=== PATIENT | male | born 1940 | race Caucasian/White ===

== ENCOUNTER 2021-08-30 09:00 | Outpatient (REF) | payer MEDICARE, SELFPAY ==
[2021-08-30 12:18] LABS: Color, Urine Yellow (Yellow); Glucose, Dipstick Normal (Normal); Ketone-Dipstick Negative (Negative); Leukocyte Esterase-Dipstick Negative /ul (Negative); Nitrite-Dipstick Negative (Negative); Occult Blood-Urine Negative /ul (Negative); Protein-Dipstick Negative (Negative); Urine Bilirubin Dipstick Negative (Negative); Urine Clarity Sl. Cloudy (Clear); Urine Urobilinogen Normal (Normal)
== END 2021-08-30 23:59 | disposition home or self-care (01) ==
LOC: OLS.BROOKB 09:00
PROVIDERS: Visit Provider Family Medicine
DX: R41.0 Disorientation, unspecified (principal)
CPT/HCPCS: 81002; 87086

== ENCOUNTER → 2021-10-21 | Outpatient (REF) | payer MEDICARE, SELFPAY ==
[2021-10-21 07:19] LABS: Hematocrit 31.7 % (40-54); Hemoglobin 9.7 g/dL (13.0-16.5); Mean Corp Hgb Conc 30.6 g/dL (32-36); Mean Corpuscular Hgb 25.7 pg (27.0-32.0); Mean Corpuscular Volume 83.9 fL (80-94); Mean Platelet Vol. 10.2 fl (6.2-12.0); Platelet Count 363 K/mm3 (150-450); RBC Distribution Width SD 52.2 fl (35.1-43.9); Red Blood Count 3.78 M/mm3 (4.6-6.2); White Blood Count 5.7 K/mm3 (4.4-11.0)
[2021-10-21 07:43] LABS: ALB/GLOB Ratio 0.5 RATIO (0.9-2.4); AST(SGOT) 8 U/L (15-37); Alanine Aminotransfer ALT/SGPT < 6 U/L (16-61); Albumin, Serum 2.1 g/dL (3.2-5.0); Alkaline Phosphatase 57 U/L (45-117); Anion Gap 5 (5-15); BUN 9 mg/dL (7-18); BUN/Creat Ratio 14.4 RATIO (10-20); Calcium,Total 7.7 mg/dL (8.5-10.1); Chloride 107 mmol/L (98-107); Creatinine, Serum 0.63 mg/dL (0.70-1.30); EST Glomerular Filtration Rate 131 mL/min (>60); Est Glom Filt Rate - Afr Amer 158 mL/min (>60); Glucose 80 mg/dL (74-106); Potassium 3.6 mmol/L (3.5-5.1); Protein, Total 6.1 g/dL (6.4-8.2); Sodium Level 140 mmol/L (136-145); Thyroid Stim Hormone (TSH) 1.49 uIU/mL (0.358-3.74)
== END | disposition home or self-care (01) ==
LOC: OLS.BROOKB 05:00
PROVIDERS: Visit Provider Family Medicine
DX: R33.9 Retention of urine, unspecified (principal); R60.0 Localized edema
CPT/HCPCS: 36415; 80053; 84443; 85027

== ENCOUNTER → 2021-12-10 05:00 | Outpatient (REF) | payer MEDICARE, SELFPAY ==
[2021-12-10 09:05] LABS: Absolute Lymphocyte Count 1.12 X10^3/uL (0.83-4.51); Absolute Neutrophil Count 3.9 X10^3/uL (2.0-7.7); Basophil# 0.04 X10^3/uL; Basophil% 0.7 % (0-1); Eosinophil# 0.37 X10^3/uL; Eosinophils% 6.2 % (0-5); Hematocrit 33.1 % (40-54); Hemoglobin 10.1 g/dL (13.0-16.5); Lymphocyte # 1.12 X10^3/ul (0.83-4.51); Lymphocyte % 18.8 % (19-41); Mean Corp Hgb Conc 30.5 g/dL (32-36); Mean Corpuscular Hgb 25.6 pg (27.0-32.0); Mean Platelet Vol. 10.2 fl (6.2-12.0); Monocyte# 0.53 X10^3/uL; Monocyte% 8.9 % (0-10); NRBC Flagged by Analyzer 0 % (0-5); Neutrophil # 3.87 X10^3/uL (2.7-7.7); Neutrophil % 65.1 % (47-70); Platelet Count 366 K/mm3 (150-450); Red Blood Count 3.94 M/mm3 (4.6-6.2)
[2021-12-10 09:30] LABS: Anion Gap 5 (5-15); BUN 12 mg/dL (7-18); BUN/Creat Ratio 15.9 RATIO (10-20); Calcium,Total 8.1 mg/dL (8.5-10.1); Chloride 107 mmol/L (98-107); Creatinine, Serum 0.75 mg/dL (0.70-1.30); EST Glomerular Filtration Rate 106 mL/min (>60); Est Glom Filt Rate - Afr Amer 128 mL/min (>60); Ferritin 143 ng/mL (26-388); Glucose 84 mg/dL (74-106); Iron 34 ug/dL (65-175); Potassium 3.1 mmol/L (3.5-5.1); Sodium Level 142 mmol/L (136-145)
== END ==
LOC: OLS.BROOKB 05:00
PROVIDERS: Visit Provider Family Medicine
DX: M62.81 Muscle weakness (generalized) (principal)
CPT/HCPCS: 36415; 80048; 82728; 83540; 85025

== ENCOUNTER 2022-05-08 10:03 | Emergency (ER) | payer OTHER, SELFPAY ==
[2022-05-08 10:06] VITALS: TEMP 37; BMI 25.5
[2022-05-08 10:15] VITALS: BP 143/79; PULSE 75; RESP 16; TEMP 36.4; O2SAT 95
--- NOTE | 2022-05-08 10:42 | EX.ED.GUMALE ---
HPI History of Present Illness Chief Complaint: Complaint Informant: patient and spouse/S.O. Pain Onset: Today and Yesterday Context: Gradual Onset Current Severity: Mild Maximum Severity: Mild Appearance Lesion(s): No Genital Edema: No Narrative Narrative: 81-year-old male history of BPH with 2 prior TURP procedures. Also history of dementia currently living in [facility]. Accompanied by his . Reportedly he has had cloudy urine in the last several days may or may not of had urinary retention. No fever or chills. No nausea, vomiting or diarrhea. History per his due to his overall mental status. Prior similar symptoms: Yes Recent Illness/Hospitalization: No PFSH PFSH Home Medications ciprofloxacin HCl 500 mg tablet (Cipro) 500 mg PO BID 10 days #20 tabs 05/08/22 [Rx Last Taken Unknown] Allergy/AdvReac Type Severity Reaction Status Date / Time No Known Allergies Allergy Verified 05/08/22 10:09 Social History Smoking Status: Former smoker ROS ROS ED Review of Systems ROS Unobtainable: due to mental condition Constitutional Constitutional ED: Denies chills or fever(s) Eyes Eyes: Denies blurry vision ENT ENT ED: Denies ear pain Cardiovascular Cardiovascular: Denies chest pain Respiratory/Chest Respiratory/Chest: Denies cough or dyspnea Gastrointestinal Gastrointestinal: Denies abdominal pain Genitourinary Genitourinary ED: Reports dysuria; Denies hematuria Musculoskeletal Musculoskeletal: Denies arthralgias or back pain Integumentary Denies abscess or rash Neurologic Neurologic: Denies headache(s) Psychiatric Psychiatric: Denies anxiety Endocrine Endocrinology: Denies polydipsia Hematologic/Lymphatic Hematologic/Lymphatic: Denies easy bleeding Allergic/Immunologic Allergic/Immunologic ED: Denies mouth swelling or tongue swelling EXAM Physical Exam Narrative Exam Narrative: Well-appearing elderly male. Vital signs stable afebrile. Pulse ox 95% on room air no hypoxia. He does not look septic or toxic. He is in no distress. at bedside. H EENT exam unremarkable. Moist mucous membranes. Neck nontender no lymphadenopathy. Lungs clear to auscultation. Heart regular rate and rhythm no murmur rate about 75. Chest wall nontender. Abdomen soft nontender. External exam unremarkable. Moving all 4 extremities. Calves are nontender without edema. Neurologically he is awake and alert. He answers questions and follows commands. He does have dementia. He has no focal motor deficits. Const Vital Signs: 05/08/22 10:06 05/08/22 10:15 05/08/22 10:15 Temperature 98.6 F 97.5 F L 97.5 F L Temperature Source Temporal Temporal Temporal Pulse Rate 75 75 Respiratory Rate 16 16 Blood Pressure 143/79 H 143/79 H Blood Pressure Mean 100 100 Pulse Ox 95 95 Oxygen Delivery Method Room Air Room Air Positive well nourished and well developed; Negative for obese, cachectic, contractures or unkempt General Appearance ED: well developed and NAD; Negative for unkempt, cachectic, contractures or pallor Nutritional Appearance: Negative for cachectic or obese HEENT Reports moist mucous membranes; Denies dry mucous membranes normocephalic and atraumatic; Negative for trauma or tenderness Mouth ED: No dry mucous membranes Mouth: No dry mucous membranes Eyes PERRL and EOMs intact bilaterally General Eye ED: Negative for pale conjunctiva or scleral icterus Neck no lymphadenopathy, supple and no JVD General: Negative for tenderness Resp normal respiratory effort and clear to auscultation bilaterally Effort and Inspection: Negative for retractions Auscultation: Negative for rales, rhonchi or wheezes Cardio regular rate, regular rhythm, S1 normal heart sound, S2 normal heart sound and no murmurs Rate: Negative for bradycardia or tachycardic Rhythm: Negative for abnormal rhythm GI non-tender, non-distended and no masses Inspection: Negative for abdominal distention Auscultation: normoactive bowel sounds Palpation: soft; Negative for tender or guarding no CVA tenderness Bladder / Kidney Exam: No CVA tenderness Groin / Perineum Exam: Negative for edema or lesions Back/Spine no CVA tenderness General Back: Negative for CVA tenderness Cervical Spine: Negative for cervical spine tenderness Thoracic Spine / Upper Back: Negative for thoracic spinal tenderness Extremity normal to inspection Neuro No oriented x3, moves all extremities and no focal motor deficits Neuro Narrative: Dementia. Sensorium / Orientation: alert, oriented to person and confused; Negative for oriented to place, oriented to time, orientation impaired, lethargic or stuporous Motor Exam: strength 5/5 throughout Psych mental status grossly normal Appearance: Negative for unkempt Attitude: No agitated Mood & Affect: Negative for depressed Thought Process: normal thought process Thought Content: normal thought content Skin General Skin Exam: Negative for jaundice or pallor Lesions: no lesions Rashes: no rashes MDM MDM MDM Narrative Medical decision making narrative: 81-year-old male suffers from dementia from extended-care facility with possibly urinary tract infection. Screening labs along with a UA will be obtained with a bladder scan. Exam benign. Clinically looks well. Patient doing well at 12 PM. He has a [address] It drained 1-1/2 L. Discussed test results with he and his . He will be started on Cipro 500 twice daily for 10 days. Urine culture sent. He will be sent back to [email or web address] I will speak with them prior to discharge. Lab Data Attestation: I reviewed the patient's lab results. Lab results narrative: CBC shows white count 7.5. H&H 10.9 and 35.4 is a history of anemia. Platelets 398. Electrolytes potassium 3.3 gap of 7. Normal BUN of 16 creatinine 0.95. Glucose 122. Urine positive for nitrates greater than 100 white cells 2+ bacteria culture was sent this will be treated for UTI. Nurses had a bladder scan showed greater than 600 cc they placed a Garrido catheter 16 Japanese and he had 1500 cc out of cloudy urine. No blood or clots. Labs: Laboratory Results - last 24 hr 05/08/22 05/08/22 05/08/22 10:15 11:00 11:00 WBC 7.5 RBC 4.00 L Hgb 10.9 L Hct 35.4 L MCV 88.5 MCH 27.3 MCHC 30.8 L RDW Std Deviation 48.5 H RDW Coeff of [place]ay[place] 14.8 H Plt Count 398 MPV 9.7 Immature Gran % (Auto) 0.500 Neut % (Auto) 70.8 H Lymph % (Auto) 14.7 L [place] % (Auto) 11.1 H Eos % (Auto) 2.4 Baso % (Auto) 0.5 Absolute Neuts (auto) 5.3 Absolute Lymphs (auto) 1.10 Nucleated RBC % 0 Sodium 144 Potassium 3.3 L Chloride 109 H Carbon Dioxide 28.0 Anion Gap 7 BUN 16 Creatinine 0.95 Estim Creat Clear Calc 57.02 Est GFR (MDRD) Af Amer 98 Est GFR (MDRD) Non-Af 81 BUN/Creatinine Ratio 16.9 Glucose 122 H Calcium 8.5 Urine Color Yellow Urine Clarity Cloudy Urine pH 7.0 Ur Specific [place] 1.010 Urine Protein 500 H Urine Glucose (UA) Normal Urine Ketones 5 H Urine Occult Blood 250 H Urine Nitrite Positive H Urine Bilirubin Negative Urine Urobilinogen Normal Ur Leukocyte Esterase 500 H Urine RBC 0 SEEN Urine WBC >100 SEEN Ur Squamous Epith Cells 0 SEEN Urine Bacteria 2+ Urine Mucus 0 SEEN Discharge Plan Triage Chief Complaint: Complaint Other Complaint: Confusion ED Provider: Wilbert Schultz Dx/Rx/DC Orders Clinical Impression: Urinary tract infection, Acute urinary retention, History of dementia Instructions: ED Urinary Retention, Male, ED Urinary Tract Infections in Men Prescriptions: New ciprofloxacin HCl [Cipro] 500 mg tablet 500 mg PO BID 10 Days Qty: 20 0RF [facility] Referrals: Naveen Dickey MD [Med Staff - Active Staff] - As soon as possible [facility] [Primary Care Provider] - As Needed Activity Restrictions/Additional Instructions: He had 2 problems today the first was urinary retention which he will need to follow-up with the urologist for that. I referred you to Dr. Ankush Dickey. He also had a urinary tract infection. Urine culture was sent. He will be started on antibiotics Cipro 1 pill twice a day for 10 days. I spoke to [facility] and they said they can get that prescription filled today and he can take it tonight. We are giving him a dose here before he goes. The Garrido catheter will remain in place until he is seen by the urologist. Disposition Disposition: Home, Self Care
[2022-05-08 11:13] LABS: Mucous, Urine 0 SEEN /hpf (<or=2+); Red Blood Cells-Urine 0 SEEN /hpf (0-5); Squamous Epithelial Cells - UA 0 SEEN /hpf (0-5)
[2022-05-08 11:14] LABS: Absolute Neutrophil Count 5.3 X10^3/uL (2.0-7.7); Basophil# 0.04 X10^3/uL; Basophil% 0.5 % (0-1); Eosinophil# 0.18 X10^3/uL; Eosinophils% 2.4 % (0-5); Hematocrit 35.4 % (40-54); Hemoglobin 10.9 g/dL (13.0-16.5); Lymphocyte % 14.7 % (19-41); Mean Corp Hgb Conc 30.8 g/dL (32-36); Mean Corpuscular Hgb 27.3 pg (27.0-32.0); Mean Corpuscular Volume 88.5 fL (80-94); Mean Platelet Vol. 9.7 fl (6.2-12.0); Monocyte# 0.83 X10^3/uL; Monocyte% 11.1 % (0-10); NRBC Flagged by Analyzer 0 % (0-5); Neutrophil # 5.29 X10^3/uL (2.7-7.7); Neutrophil % 70.8 % (47-70); Platelet Count 398 K/mm3 (150-450); RBC Distribution Width CV 14.8 % (11.6-14.6); RBC Distribution Width SD 48.5 fl (35.1-43.9); White Blood Count 7.5 K/mm3 (4.4-11.0)
[2022-05-08 11:19] LABS: Color, Urine Yellow (Yellow); Glucose, Dipstick Normal (Normal); Ketone-Dipstick 5 mg/dl (Negative); Leukocyte Esterase-Dipstick 500 /ul (Negative); Nitrite-Dipstick Positive (Negative); Occult Blood-Urine 250 /ul (Negative); Protein-Dipstick 500 mg/dl (Negative); Urine Bilirubin Dipstick Negative (Negative); Urine Clarity Cloudy (Clear); Urine Urobilinogen Normal (Normal)
[2022-05-08 11:27] LABS: Anion Gap 7 (5-15); BUN 16 mg/dL (7-18); BUN/Creat Ratio 16.9 RATIO (10-20); Calcium,Total 8.5 mg/dL (8.5-10.1); Chloride 109 mmol/L (98-107); Creatinine, Serum 0.95 mg/dL (0.70-1.30); EST Glomerular Filtration Rate 81 mL/min (>60); Est Glom Filt Rate - Afr Amer 98 mL/min (>60); Estimated Creatinine Clearance 57.02 ml/min; Glucose 122 mg/dL (74-106); Potassium 3.3 mmol/L (3.5-5.1); Sodium Level 144 mmol/L (136-145)
[2022-05-08 11:30] LABS: Bacteria 2+ /hpf (None Seen); White Blood Cells >100 SEEN /hpf (0-5)
[2022-05-08] MEDS: Lidocaine Jelly 2% 20 ML Syringe (URO-JET) 1 APPLIC TOPICAL (11:35)
[2022-05-08] MEDS: Ciprofloxacin 500 MG Tablet PO (12:23)
[2022-05-08 12:25] VITALS: BP 163/72; PULSE 70; RESP 16; O2SAT 97
[2022-05-08 13:03] VITALS: PULSE 72; RESP 17; O2SAT 94
== END 2022-05-08 13:06 | disposition home or self-care (01) ==
PROVIDERS: Emergency Provider Emergency Medicine; Visit Provider Emergency Medicine
DX: N39.0 Urinary tract infection, site not specified (principal); F03.90 Unspecified dementia, unspecified severity, without behavioral disturbance, psychotic disturbance, mood disturbance, and anxiety; R33.9 Retention of urine, unspecified; Z87.891 Personal history of nicotine dependence
CPT/HCPCS: 51702; 80048; 81001; 85025; 87086; 87088; 99285; J7030; A4216

== ENCOUNTER 2022-05-11 11:17 | Emergency (ER) | payer OTHER, SELFPAY ==
[2022-05-11 11:18] VITALS: BP 165/64; PULSE 64; RESP 18; TEMP 36.9; O2SAT 99; BMI 21.9
--- NOTE | 2022-05-11 11:27 | CM.ED ---
Social Work Consult: Discharge Planning Referral source: Triage Nurse. This protective services social worker went to triage to touch base with family. On the way to triage [facility] called this protective services social worker. Ximena at [facility] reports to have been speaking with patient family ([id number], Alissa and , Aleida). Ximena reports that patient has been accepted to [facility] unit and plan is for patient to discharge from the ED to [facility] inpatient unit. Ximena request for I.V to be started and urine culture to be completed on patient in ED, this protective services social worker communicating that unable to confirm treatment plan but will pass on request to medical team, Ximena voiced understanding. Ximena provided direct number phone: [phone] and fax: [phone]. Ximena reports that per family patient is able to be transferred via private vehicle. Ximena request for ED documentation to be faxed to above number. Ximena reports no need for nurse to nurse report and will go off ED records. Ximena asked to be called back when patient is discharged from ED and coming to [facility]. This protective services social worker then speaking with Alissa and Aleida. Alissa and Aleida confirm to have been speaking with [facility]. This protective services social worker communicating that per conversation with Ximena that patient is accepted at [facility]. Alissa states thank goodness. Patient diagnosed with Dementia and is a resident at [facility]. Patient with recent agitation and concern for UTI. Aleida and Alissa not pleased with care patient is obtaining at [facility] and this was reason for bringing patient to [facility] ED today. Plan is for patient to be triaged and then seen by ED doctor. Active support and listening provided. Patient son, Danie also on way to hospital. Medical team updated. Will continue to follow. Uyen SHELTON, MEIR
--- NOTE | 2022-05-11 11:41 | EX.ED.GUMALE ---
HPI History of Present Illness Chief Complaint: Male Pain/Injury Detail of Chief Complaint: Burning sensation to tip of penis Informant: patient Narrative Narrative: Patient presents to the emergency department with complaint of burning to the tip of his penis where his Garrido catheter is been inserted. Patient was seen here on the sixth of the month and diagnosed with urinary retention. Patient had a Garrido catheter inserted and was started on Cipro for suspicious urine for UTI. Patient will be going to hospice for a few days and they thought he might be dehydrated. Patient denies abdominal pain. He has history of dementia. A lot of the history comes from the patient's and son. Patient has not had fever. There is been no vomiting. [facility] Medical History (Updated 05/11/22 @ 13:[address] Terence Roman DO) Dementia Hypertension Home Medications ciprofloxacin HCl 500 mg tablet (Cipro) 500 mg PO BID 10 days #20 tabs 05/08/22 [Rx Last Taken Unknown] ciprofloxacin HCl 500 mg tablet (Cipro) 500 mg PO BID 10 days #20 tabs 05/08/22 [Rx Last Taken Unknown] Allergy/AdvReac Type Severity Reaction Status Date / Time No Known Allergies Allergy Verified 05/11/22 11:17 Social History Smoking Status: Former smoker ROS ROS ED Review of Systems ROS Unobtainable: other Constitutional Constitutional ED: Reports lethargy; Denies chills, fever(s), sweats or weight loss Eyes Eyes: Denies blurry vision, change in vision or diplopia ENT ENT ED: Denies rhinorrhea or sore throat Cardiovascular Cardiovascular: Denies chest pain, orthopnea or racing heartbeat Respiratory/Chest Respiratory/Chest: Denies cough, dyspnea, dyspnea on exertion, orthopnea or sputum Gastrointestinal Gastrointestinal: Denies abdominal pain, diarrhea, nausea or vomiting Genitourinary Genitourinary ED: Reports other Details: Burning sensation at Garrido catheter insertion site ; Denies dysuria, hematuria or urinary frequency Musculoskeletal Musculoskeletal: Denies arthralgias, back pain, myalgias or neck pain Integumentary Denies abscess, Abrasions or rash Neurologic Neurologic: Denies headache(s) or weakness Psychiatric Psychiatric: Denies anxiety, depression or suicidal thoughts Endocrine Endocrinology: Denies polydipsia, polyphagia or polyuria Hematologic/Lymphatic Hematologic/Lymphatic: Denies easy bleeding, easy bruising or lymphadenopathy Allergic/Immunologic Allergic/Immunologic ED: Denies mouth swelling, tongue swelling or urticaria EXAM Physical Exam Const Vital Signs: 05/11/22 11:18 Temperature 98.4 F Temperature Source Temporal Pulse Rate 64 Respiratory Rate 18 Blood Pressure 165/64 H Blood Pressure Mean 97 Pulse Ox 99 Oxygen Delivery Method Room Air Positive well nourished and well developed General Appearance ED: well developed and NAD HEENT Reports TM's clear and moist mucous membranes normocephalic and atraumatic; Negative for trauma or tenderness Tympanic Membrane ED: Yes TM's clear Eyes PERRL and EOMs intact bilaterally General Eye ED: Negative for pale conjunctiva or scleral icterus Neck no lymphadenopathy, supple and no JVD General: Negative for tenderness Chest Wall inspection of chest normal and palpation of chest normal Chest: Negative for tenderness Resp normal respiratory effort and clear to auscultation bilaterally Effort and Inspection: Negative for respiratory distress or pain with movement Auscultation: Negative for rhonchi, wheezes or diminished lung sounds Cardio regular rate, regular rhythm, S1 normal heart sound, S2 normal heart sound and no murmurs Peripheral Pulses: pulses 2+ throughout GI normal to inspection, nondistended, normoactive bowel sounds, soft to palpation, non-tender, non-distended and no masses Narrative: Patient has a Garrido catheter in place. I do not appreciate any lacerations or wounds to the tip of the penis. The Garrido catheter is draining yellow urine. Patient is not circumcised but the foreskin does retract back easily. Back/Spine no CVA tenderness and no thoracic nor lumbar tenderness Extremity normal to inspection General Extremety ED: Negative for edema General Extremity: Negative for edema Neuro oriented x3, CN's II-XII intact bilaterally, no sensory deficits noted and gait normal Sensorium / Orientation: awake, alert, oriented to person, oriented to place and oriented to time Motor Exam: strength 5/5 throughout and strength abnormal Psych mental status grossly normal Skin no rashes or lesions noted and no wounds MDM MDM MDM Narrative Medical decision making narrative: The line established and patient was given a liter mostly of fluid bolus. Lab work-up was normal. Urinalysis actually looks improved with 10-25 RBCs and 25-50 WBCs with no bacteria and negative nitrites. I did review the urine culture sent several days ago and that did not grow anything suspicious. At this point patient feels well. Patient was seen by social worker clinical also and will be taking patient to inpatient hospice for a couple of days. Lab Data Attestation: I reviewed the patient's lab results. Labs: Laboratory Results - last 24 hr 05/11/22 05/11/22 05/11/22 12:03 12:03 12:39 WBC 7.6 RBC 3.97 L Hgb 10.9 L Hct 34.9 L MCV 87.9 MCH 27.5 MCHC 31.2 L RDW Std Deviation 47.3 H RDW Coeff of Nayely 14.7 H Plt Count 422 MPV 9.6 Immature Gran % (Auto) 0.800 Neut % (Auto) 64.6 Lymph % (Auto) 16.8 L [place] % (Auto) 8.7 Eos % (Auto) 8.6 H Baso % (Auto) 0.5 Absolute Neuts (auto) 4.9 Absolute Lymphs (auto) 1.27 Nucleated RBC % 0.3 Sodium 141 Potassium 3.3 L Chloride 107 Carbon Dioxide 30.0 Anion Gap 4 L BUN 9 Creatinine 0.78 Estim Creat Clear Calc 52.04 Est GFR (MDRD) Af Amer 122 Est GFR (MDRD) Non-Af 101 BUN/Creatinine Ratio 11.5 Glucose 94 Calcium 8.5 Urine Color Yellow Urine Clarity Sl. Cloudy Urine pH 7.0 Ur Specific [place] 1.010 Urine Protein 30 H Urine Glucose (UA) Normal Urine Ketones Negative Urine Occult Blood 150 H Urine Nitrite Negative Urine Bilirubin Negative Urine Urobilinogen Normal Ur Leukocyte Esterase 500 H Urine RBC 10-25 SEEN Urine WBC 25-50 SEEN Ur Squamous Epith Cells 0 SEEN Urine Bacteria 0 SEEN Urine Mucus 0 SEEN Discharge Plan Triage Chief Complaint: Male Pain/Injury ED Provider: Terence Roman Dx/Rx/DC Orders Clinical Impression: Garrido catheter problem, Agitation, History of urinary retention Instructions: ED Dysuria, Uncertain Cause (Adult), ED Urinary Retention, Male Prescriptions: No Action ciprofloxacin HCl [Cipro] 500 mg tablet 500 mg PO BID 10 Days Qty: 20 0RF ciprofloxacin HCl [Cipro] 500 mg tablet 500 mg PO BID 10 Days Qty: 20 0RF [facility] Provider[facility] - Disposition Disposition: Home, Self Care
[2022-05-11 12:09] LABS: Absolute Lymphocyte Count 1.27 X10^3/uL (0.83-4.51); Absolute Neutrophil Count 4.9 X10^3/uL (2.0-7.7); Basophil# 0.04 X10^3/uL; Basophil% 0.5 % (0-1); Eosinophil# 0.65 X10^3/uL; Eosinophils% 8.6 % (0-5); Hematocrit 34.9 % (40-54); Hemoglobin 10.9 g/dL (13.0-16.5); Lymphocyte # 1.27 X10^3/ul (0.83-4.51); Lymphocyte % 16.8 % (19-41); Mean Corp Hgb Conc 31.2 g/dL (32-36); Mean Corpuscular Hgb 27.5 pg (27.0-32.0); Mean Corpuscular Volume 87.9 fL (80-94); Mean Platelet Vol. 9.6 fl (6.2-12.0); Monocyte# 0.66 X10^3/uL; Monocyte% 8.7 % (0-10); NRBC Flagged by Analyzer 0.3 % (0-5); Neutrophil # 4.88 X10^3/uL (2.7-7.7); Neutrophil % 64.6 % (47-70); Platelet Count 422 K/mm3 (150-450); RBC Distribution Width CV 14.7 % (11.6-14.6); RBC Distribution Width SD 47.3 fl (35.1-43.9); Red Blood Count 3.97 M/mm3 (4.6-6.2); White Blood Count 7.6 K/mm3 (4.4-11.0)
[2022-05-11 12:20] LABS: Anion Gap 4 (5-15); BUN 9 mg/dL (7-18); BUN/Creat Ratio 11.5 RATIO (10-20); Calcium,Total 8.5 mg/dL (8.5-10.1); Chloride 107 mmol/L (98-107); Creatinine, Serum 0.78 mg/dL (0.70-1.30); EST Glomerular Filtration Rate 101 mL/min (>60); Est Glom Filt Rate - Afr Amer 122 mL/min (>60); Estimated Creatinine Clearance 52.04 ml/min; Glucose 94 mg/dL (74-106); Potassium 3.3 mmol/L (3.5-5.1); Sodium Level 141 mmol/L (136-145)
[2022-05-11] MEDS: 0.9% Normal Saline 1,000 ML 1000 ML IV (12:33)
[2022-05-11 12:44] LABS: Bacteria 0 SEEN /hpf (None Seen); Mucous, Urine 0 SEEN /hpf (<or=2+); Squamous Epithelial Cells - UA 0 SEEN /hpf (0-5)
[2022-05-11 12:47] LABS: Color, Urine Yellow (Yellow); Glucose, Dipstick Normal (Normal); Ketone-Dipstick Negative (Negative); Leukocyte Esterase-Dipstick 500 /ul (Negative); Nitrite-Dipstick Negative (Negative); Occult Blood-Urine 150 /ul (Negative); Protein-Dipstick 30 mg/dl (Negative); Urine Bilirubin Dipstick Negative (Negative); Urine Clarity Sl. Cloudy (Clear); Urine Urobilinogen Normal (Normal)
[2022-05-11 12:53] LABS: Red Blood Cells-Urine 10-25 SEEN /hpf (0-5); White Blood Cells 25-50 SEEN /hpf (0-5)
--- NOTE | 2022-05-11 13:55 | CM.ED ---
Social Work Patient up for discharged per nurse. This social media marketing manager confirmed with patient family that patient to be transferred by family. Telephone call to [facility], Ximena. This social media marketing manager updated Ximena on above information. Clinical information from ED visit faxed to [facility]. PLAN: [facility], inpatient unit. Uyen SHELTON, MEIR
[2022-05-11 14:09] VITALS: PULSE 63; RESP 16; O2SAT 98
--- NOTE | 2022-05-11 14:22 | ED.RN ---
PT LEG BAG CHANGED, CATHETER SECURED TO RIGHT LEG WITH NEW STICKER, AND CATHETER EMPTIED ON DISCHARGE. PT DRESSED AND PLACED IN WHEELCHAIR.
== END 2022-05-11 14:10 | disposition home or self-care (01) ==
PROVIDERS: Emergency Provider Emergency Medicine; Visit Provider Emergency Medicine
DX: T83.84XA Pain due to genitourinary prosthetic devices, implants and grafts, initial encounter (principal); R45.1 Restlessness and agitation; Z87.891 Personal history of nicotine dependence; X58.XXXA Exposure to other specified factors, initial encounter
CPT/HCPCS: 80048; 81001; 85025; 96360; 96361; 99283; J7030